=== PATIENT | male | born 1930 | race Caucasian/White ===

== ENCOUNTER 2016-08-16 22:04 | Inpatient (IN) | payer MEDICARE, SELFPAY ==
--- NOTE | ~2016-08-16 | CN ---
Consultation Report [facility] [address] [place]. [address] NAME: MISTY MEAD : 34 STATUS : ADM IN [facility]#: [id number] AGE: 86 ADM/REG DATE : 08/16/16 MR#: [id number] REPORT SERV DATE: 08/20/16 DICTATED BY: ELIZABETH GOMEZ III DATE: 08/19/16 REPORT STATUS : Draft TRANSCRIBED BY: MODL DATE: 08/19/16 CONSULTATION DATE OF CONSULTATION: 08/19/2016 REASON FOR CONSULTATION: CLL. HISTORY OF PRESENT ILLNESS: Mr. Mead is an 86-year-old man who presented to the hospital on the with severe pain in his right iliac spine. He noted a knot that appeared there on this Monday prior to admission with severe pain. This did resolve spontaneously. He does note that in the past several months he has lost considerable amount of weight. He has not noted any recent night sweats. He has not noted any other pain presently. He has been more fatigued and has not been eating very well. PAST MEDICAL HISTORY: Negative as he has not been to a physician in many years. FAMILY HISTORY: Noncontributory. SOCIAL HISTORY: Negative for any tobacco or alcohol or drug abuse. MEDICATIONS: His home medication list is negative. REVIEW OF SYSTEMS: A comprehensive review of systems was performed and is negative unless noted in the HPI. PHYSICAL EXAMINATION: VITAL SIGNS: Blood pressure is 150/71, temperature is 98.2, pulse is 60, respiratory rate 16. GENERAL: This is a well-developed cachectic man in no acute distress. EYES: Pupils are round and reactive to light. Extraocular muscles are intact. NECK: Supple with no masses or thyroid enlargement. No JVD. CARDIOVASCULAR: Regular rate and rhythm with no audible murmurs. There is no peripheral edema. LUNGS: Clear to auscultation bilaterally. ABDOMEN: Soft, nondistended, nontender. There is no noted hepatosplenomegaly. No ascites. SKIN: Warm and dry with good skin turgor. No jaundice. LYMPHATIC: Negative for any cervical, supraclavicular, or axillary lymphadenopathy. PSYCHIATRIC: He is alert, oriented, and comprehends our conversation with normal judgment and affect. MUSCULOSKELETAL: Negative for any synovitis or other joint abnormalities. LABORATORY DATA: His most recent CBC showed a white blood cell count of 20.5, hemoglobin of 10.6, and platelet count of 83. His CT scan was personally reviewed and did show splenomegaly. There was also abdominal mildly enlarged diffuse lymphadenopathy. Consultation Report [place] [address] [place] [address] NAME: MISTY MEAD : 32 STATUS : ADM IN PAT#: [id number] AGE: 86 ADM/REG DATE : 08/16/16 MR#: [id number] REPORT SERV DATE: 08/20/16 DICTATED BY: ELIZABETH GOMEZ III DATE: 08/19/16 REPORT STATUS : Draft TRANSCRIBED BY: MODL DATE: 08/19/16 ASSESSMENT AND PLAN: Chronic lymphocytic leukemia. His elevated white blood cell count is secondary to his disease. His anemia and thrombocytopenia also are likely secondary to his disease. He will require treatment. It is okay for him to be discharged home. He is a candidate for our clinical trial which he is avoiding chemotherapy in the front-line setting and using a CD20 monoclonal antibody with routes out a PI3-kinase delta inhibitor. We will follow while he is an inpatient and arrange outpatient followup upon discharge. BMA/JERMAIN Elizabeth Gomez III, M.D. / [id number] CC: Ana Kramer M.D.
--- NOTE | ~2016-08-16 | HP ---
History And Physical [address] [place]. [address] NAME: MISTY MEAD : 32 STATUS : ADM [facility] PAT#: [id number] AGE: 86 ADM/REG DATE : 08/16/16 MR#: [id number] REPORT SERV DATE: 08/17/16 DICTATED BY: TRAV HANNA DATE: 08/17/16 REPORT STATUS : Draft TRANSCRIBED BY: MODL DATE: 08/17/16 DATE OF ADMISSION: 08/16/2016 CHIEF COMPLAINT: Abdominal pain. DICTATION ENDS HERE /JERMAIN Trav Hanna M.D. / [id number] CC: Gerson Osborne M.D.
--- NOTE | ~2016-08-16 | DS ---
Discharge Summary [facility] [address] [place]. [address] NAME: MISTY MEAD : 32 STATUS : ADM IN [facility]#: [id number] AGE: 86 ADM/REG DATE : 08/16/16 MR#: [id number] REPORT SERV DATE: 08/20/16 DICTATED BY: GARRETT ROWLAND DATE: 08/20/16 REPORT STATUS : Draft TRANSCRIBED BY: MODL DATE: 08/20/16 ADMISSION DATE: 08/16/2016 DISCHARGE DATE: 08/20/2016 DIAGNOSES ON ADMISSION: Abdominal pain, leukocytosis, and possible pyelonephritis. DIAGNOSES ON DISCHARGE: 1. Blood disorder suggestive of chronic lymphocytic leukemia, status post bone marrow biopsy. 2. Leukocytosis and thrombocytopenia secondary to chronic lymphocytic leukemia. 3. No evidence of pyelonephritis, mild hematuria present on admission secondary to Olmstead placement in the emergency room, resolved after Ol[place]stead catheter was discontinued. 4. Prerenal azotemia present on admission, stable with IV fluid hydration. It looks like mild chronic kidney disease with a baseline creatinine of 1.2. The patient needs to drink fluids. 5. Enlarged prostate on the CT scan, probable benign prostatic hypertrophy with a normal PSA level. Recommend outpatient Urology followup. CONSULTANTS ON THE CASE: Retread Operator/oncologist, Dr. Torres. IMAGING STUDIES: CT of the abdomen and pelvis on 08/16/2016, no acute abdominal or pelvic pathology; cholelithiasis, no acute cholecystitis; nonspecific splenomegaly; prostate enlargement; probable BPH. Correlation with a PSA level recommended. Chest x-ray on 08/16/2016; granuloma, otherwise clear lungs. Heart is normal size. HISTORY OF PRESENT ILLNESS: Briefly, this is an 86-year-old man who was admitted by my colleague, Dr. Berman because of pain and weakness. He had significant leukocytosis of 26,000 on admission as well as he had low platelet count, it was 87,000 on admission. For details, see history of present illness dictated by Dr. Berman. HOSPITAL COURSE: Briefly, the patient was admitted to the hospital. He was seen by nurse practitioner, Jolie Ayon, since admission until 08/19/2016. I started to see this patient on 08/19/2016. The patient had peripheral smear done, which showed platelets in markedly decreased numbers, and he had also increased level of lymphocytes. 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 The patient had a bone marrow biopsy. The final results are currently pending. The patient was given IV fluid hydration during hospitalization. His blood cultures were negative. The patient did not have any fever and did not have any abdominal pain. He tolerated his diet. His urinalysis showed blood in the urine with more than 182 red cells and only 2 white cells. The patient's creatinine stayed in the range of 1.2 to 1.15. It looks like this is baseline for him. The patient and his family were told that he should avoid any nonsteroidal antiinflammatories and not use any Aleve, naproxen, or ibuprofen and also to drink plenty of fluids. The patient was seen by motor vehicle licence examiner/oncologist, Dr. Torres, who recommended the patient to be discharged as well as he recommended the patient to follow up with him for chronic lymphocytic leukemia treatment. Dr. Torres in his consult note mentioned that he may be a candidate for clinical trials with new antibody treatment. Discharge Summary [address] [address] NAME: MISTY MEAD : 32 STATUS : ADM IN PAT#: [id number] AGE: 86 ADM/REG DATE : 08/16/16 MR#: [id number] REPORT SERV DATE: 08/20/16 DICTATED BY: GARRETT ROWLAND DATE: 08/20/16 REPORT STATUS : Draft TRANSCRIBED BY: JERMAIN DATE: 08/20/16 The patient is using only Tylenol at home as needed for pain. I told the patient and his family to avoid any nonsteroidal antiinflammatories and I told them also that he can use Tylenol but not to exceed the appropriate dose of 1000 to 1500 mg a day. The patient does not have a primary care physician. Family was told that it will be good to find a primary care physician for the patient. The patient was discharged in stable condition. Office phone number for Dr. Torres was given to the patient and family to call onto schedule an appointment in the next one to two weeks. DICTATED BY: Atif Wadsworth/JERMAIN Garrett Rowland M.D. / [id number] CC: Atif Wadsworth III, M.D.
--- NOTE | ~2016-08-16 | HP ---
History And Physical [place] [address] [facility] [place]. [address] NAME: MISTY MEAD : 32 STATUS : ADM [facility] PAT#: [id number] AGE: 86 ADM/REG DATE : 08/16/16 MR#: [id number] REPORT SERV DATE: 08/17/16 DICTATED BY: TRAV HANNA DATE: 08/17/16 REPORT STATUS : Draft TRANSCRIBED BY: MODL DATE: 08/17/16 DATE OF ADMISSION: 08/16/2016 CHIEF COMPLAINT: Abdominal pain. HISTORY OF PRESENT ILLNESS: This is an 86-year-old male with no significant past medical history and has not seen a physician in many years, who presents to the emergency room at [facility] with the above-mentioned complaint. History is obtained from the patient, his niece who is at bedside, and reviewing data available on the [employer] system. According to Mr. Mead and his niece, he was in his usual state of health until Monday, which is about two days ago when he started feeling a knot on his left hip. This was associated with excruciating pain and the niece who is with him also saw it. He actually points to an area over his anterior superior iliac spine as where the knot is. Apparently in the last 24 hours or so, he has also complained of feeling chill and freezing. They finally took him to [facility]'s outpatient clinic in [place], [place], where a blood work was done, leukocytosis was seen, and the patient was sent here for further evaluation. In the emergency room here, initial workup revealed an elevated white blood cell count. Unfortunately, they were not able to get a sample for urinalysis, as the patient was so dry. Hospitalist Service is asked to admit him for further evaluation and treatment. At the time of my evaluation, Mr. Mead was arousable; follows commands; and was alert, awake, and oriented. However, he appeared to be very weak. He denied any chest pain or palpitations. He had no orthopnea. He had no cough, hemoptysis, night sweats, or weight loss. He has not had any recent falls or loss of consciousness. No history of recent nausea, vomiting, or diarrhea. No history of hematemesis, hematochezia, or hematuria. No other history of recent travel or exposures. PAST SOCIAL HISTORY: None. SOCIAL HISTORY: He does not smoke, drink, or use recreational drugs at this time. FAMILY HISTORY: Noncontributory. MEDICATIONS: His medications at home were reviewed by me in the chart today and reordered by me. REVIEW OF SYSTEMS: As in history of present illness. All other systems were reviewed in detail and are quite unremarkable. PHYSICAL EXAMINATION: GENERAL: This is a pleasant 86-year-old, who appears to be emaciated and weak. However, he alert, awake, and oriented to time, place, and person. History And Physical [address] [address] NAME: MISTY MEAD : 32 STATUS : ADM [facility] PAT#: [id number] AGE: 86 ADM/REG DATE : 08/16/16 MR#: [id number] REPORT SERV DATE: 08/17/16 DICTATED BY: TRAV HANNA DATE: 08/17/16 REPORT STATUS : Draft TRANSCRIBED BY: JERMAIN DATE: 08/17/16 HEENT: His head is atraumatic, normocephalic. His pupils are equal, reacting to light, and accommodating. External ocular muscles are intact. Membranes are moist and pink. Sclerae are nonicteric. NECK: Supple with no jugular venous distention, lymphadenopathy, or thyromegaly. LUNGS: Clear to auscultation with no wheezes, rubs, or crackles. HEART: Heart sounds were regular with no murmurs, rubs, or gallops. ABDOMEN: Soft, nontender. Bowel sounds are present. EXTREMITIES: Showed no cyanosis, clubbing, or cyanosis. NEUROLOGIC: Grossly intact. No focal sensory or motor deficits. Higher functions appeared intact. VITAL SIGNS: His vital signs today showed a temperature of 98.2, pulse 76, respirations 16 a minute, blood pressure was 142/68, oxygen saturations were 96% breathing 2 L of oxygen via nasal cannula. LABORATORY DATA: Reviewed on the [employer] system showed normal CMP. His lipase was 192, troponin was 0.02. Lactate was 0.6. BNP was 60.8. His white blood cell count was elevated at 26,700, hemoglobin was 12, hematocrit 38.5, and platelet count was down to 87,000. We have no prior values to compare all this. His prothrombin time was 14.8 with an INR 1.2. Urinalysis was unavailable at this time. Films of the CT scan of his abdomen and pelvis were reviewed by me on the PACS today and interpreted by me. There is cholelithiasis without cholecystitis. No other acute findings. A 12-lead EKG done in the emergency room was reviewed and interpreted by me. There is normal sinus rhythm at a rate of 79 per minute. IMPRESSION: 1. Abdominal pain. 2. Leukocytosis. 3. Possible pyelonephritis. PLAN: We will admit Mr. Mead to the Hospitalist Service with defensive monitoring for a 24 hour observation. We will start him on IV fluid boluses for volume replacement and dehydration, obtain urine sample, and then proceed with antibiotics. Even after a bolus of IV antibiotics, the patient had no urine even after he was catheterized. We will continue bolus fluids and obtain a sample before we give antibiotics. He will also be placed on unfractionated heparin for DVT prophylaxis while here. I have discussed the above plans with the patient and his niece. Their questions were answered and they are agreeable to the above recommendations. Hospitalist Service will be following him during his stay here. /JERMAIN Trav Hanna M.D. / [phone] History And Physical [address] [address] NAME: MISTY MEAD : 32 STATUS : ADM [facility] PAT#: [id number] AGE: 86 ADM/REG DATE : 08/16/16 MR#: [id number] REPORT SERV DATE: 08/17/16 DICTATED BY: TRAV HANNA DATE: 08/17/16 REPORT STATUS : Draft TRANSCRIBED BY: JERMANI DATE: 08/17/16 CC: Gerson Osborne M.D.
[2016-08-16 21:17] LABS: ER CBC TAT 0 Hrs 05 Mins; HEMATOCRIT 38.5 % (40.0-51.0); MEAN CORPUS HGB CONC 31.2 g/dL (32.0-36.0); MEAN CORPUSCULAR HEMOGLOB 27.6 pg (26.0-34.0); MEAN CORPUSCULAR VOLUME 88.7 fL (80-100); MEAN PLATELET VOLUME 11.6 fL (9.2-13.0); PLATELET COUNT 87 10/3/uL (150-400); RBC DISTRIBUTION WIDTH 16.9 % (12.0-16.0); RED CELL COUNT 4.34 10/6/uL (4.7-6.1); WHITE BLOOD CELLS 26.7 10/3/uL (4.5-10.5)
[2016-08-16 21:19] LABS: MANUAL DIFF YES %
[2016-08-16 21:23] LABS: INTERNATIONAL NORMAL RATI 1.2 UNITS (-); PARTIAL THROMBO TIME 41.3 SEC (22.5-37.2); PROTIME (NOT ORD) 14.8 SEC (12.0-14.5)
[2016-08-16 21:32] LABS: BUN (BLOOD UREA NITROGEN) 17 MG/DL (6-23); CALCIUM, SERUM 9.3 MG/DL (8.5-10.4); CHEST PAIN PROFILE TAT 0 Hrs 20 Mins; CHLORIDE, SERUM 102 MMOL/L (96-112); CO2 (CARBON DIOXIDE) 31 MMOL/L (24-34); CREATININE 1.07 MG/DL (0.70-1.30); GFR AFRICAN AMERICAN 73 ML/MIN (>=60); GFR NON AFRICAN AMERICAN 63 ML/MIN (>=60); GLUCOSE, SERUM 84 MG/DL (60-99); POTASSIUM, SERUM 4.3 MMOL/L (3.5-5.3); SODIUM, SERUM 136 MMOL/L (135-148); TROPONIN I <0.02 NG/ML (<0.05)
[2016-08-16 21:35] LABS: BAND NEUTROPHILS 1 %; ER DIFF TAT 0 Hrs 23 Mins; LYMPHOCYTES 72 %; LYMPHOCYTES ABSOLUTE (CALC) 19.22 10/3/uL (0.67-4.30); MONOCYTES 6 %; NEUTROPHILS ABSOLUTE (CALC) 5.87 10/3/uL (2.02-8.40); SEGMENTED NEUTROPHIL (0) 21 %; TOTAL NUCLEATED CELLS 100
[2016-08-16 21:37] LABS: PLATELET ESTIMATE DEC (ADEQUATE); SMUDGE CELLS FEW
[2016-08-16 21:38] LABS: PATH REVIEW YES
[2016-08-16 22:47] LABS: ALBUMIN 3.7 G/DL (3.5-5.0); ALKALINE PHOSPHATASE 69 U/L (45-117); DIRECT BILIRUBIN 0.2 MG/DL (0.0-0.4); INDIRECT BILIRUBIN(NOT ORDER) 0.3 MG/DL (0.1-0.9); SGOT(AST) 22 U/L (5-40); SGPT(ALT) 20 U/L (5-65); TOTAL BILIRUBIN 0.5 MG/DL (0-1.2); TOTAL PROTEIN 7.9 G/DL (6.0-8.5)
[2016-08-16] MEDS ORDERED: ACET500CAP PO (22:55)
[2016-08-17 02:00] LABS: ASCORBIC ACID (UR NOT ORDER) NEG (NEG); BILIRUBIN, URINE NEGATIVE (NEG); ER URINALYSIS TAT 0 Hrs 00 Mins; KETONE, URINE NEGATIVE (NEG); LEUKOCYTE ESTERASE(NOT OR TRACE (NEG); NITRITE (URINE) NEG (NEG); WBC (NOT ORDERED) (RFLEX) 2 (0-5)
[2016-08-17 02:19] LABS: PROCALCITONIN <0.05 ng/mL (<0.5)
[2016-08-17 06:47] LABS: HEMOGLOBIN 10.4 g/dL (13.6-17.8); MEAN CORPUS HGB CONC 31.5 g/dL (32.0-36.0); MEAN CORPUSCULAR HEMOGLOB 27.9 pg (26.0-34.0); MEAN CORPUSCULAR VOLUME 88.5 fL (80-100); MEAN PLATELET VOLUME 10.7 fL (9.2-13.0); NUCLEATED RED BLOOD CELLS 1.2 /100WBC (0-0); PLATELET COUNT 81 10/3/uL (150-400); RBC DISTRIBUTION WIDTH 17.1 % (12.0-16.0); RED CELL COUNT 3.73 10/6/uL (4.7-6.1); WHITE BLOOD CELLS 20.9 10/3/uL (4.5-10.5)
[2016-08-17 06:48] LABS: BUN (BLOOD UREA NITROGEN) 16 MG/DL (6-23); CHLORIDE, SERUM 108 MMOL/L (96-112); CO2 (CARBON DIOXIDE) 27 MMOL/L (24-34); CREATININE 0.96 MG/DL (0.70-1.30); GFR AFRICAN AMERICAN 84 ML/MIN (>=60); GFR NON AFRICAN AMERICAN 72 ML/MIN (>=60); GLUCOSE, SERUM 80 MG/DL (60-99); MANUAL DIFF YES %; PHOSPHORUS, SERUM 3.3 MG/DL (2.5-4.5); POTASSIUM, SERUM 4.8 MMOL/L (3.5-5.3); SODIUM, SERUM 140 MMOL/L (135-148)
[2016-08-17 06:49] LABS: CALCIUM, SERUM 8.3 MG/DL (8.5-10.4)
[2016-08-17 07:48] LABS: ANISOCYTOSIS 1+ (5-10/OIF) (0-5/OIF); ATYPICAL LYMPH FEW (3-5%) (0-5%); LYMPHOCYTES 59 %; LYMPHOCYTES ABSOLUTE (CALC) 12.33 10/3/uL (0.67-4.30); MONOCYTES 12 %; MONOCYTES ABSOLUTE (CALC) 2.51 10/3/uL (0.21-1.20); NEUTROPHILS ABSOLUTE (CALC) 6.06 10/3/uL (2.02-8.40); PLATELET ESTIMATE DEC (ADEQUATE); SEGMENTED NEUTROPHIL (0) 29 %; SMUDGE CELLS FEW; TOTAL NUCLEATED CELLS 100
[2016-08-17 07:52] LABS: PATH REVIEW SEE PATHOLOGY REPORT
[2016-08-17 17:41] LABS: PROSTATIC SPECIFIC AG 2.21 NG/ML (0.0-6.5)
[2016-08-18 06:41] LABS: BUN (BLOOD UREA NITROGEN) 16 MG/DL (6-23); CALCIUM, SERUM 8.7 MG/DL (8.5-10.4); CHLORIDE, SERUM 110 MMOL/L (96-112); CO2 (CARBON DIOXIDE) 25 MMOL/L (24-34); CREATININE 1.15 MG/DL (0.70-1.30); GFR AFRICAN AMERICAN 67 ML/MIN (>=60); GFR NON AFRICAN AMERICAN 58 ML/MIN (>=60); GLUCOSE, SERUM 81 MG/DL (60-99); POTASSIUM, SERUM 4.4 MMOL/L (3.5-5.3); SODIUM, SERUM 142 MMOL/L (135-148)
[2016-08-18 07:52] LABS: HEMATOCRIT 31.5 % (40.0-51.0); HEMOGLOBIN 9.8 g/dL (13.6-17.8); MEAN CORPUS HGB CONC 31.1 g/dL (32.0-36.0); MEAN CORPUSCULAR HEMOGLOB 27.5 pg (26.0-34.0); MEAN CORPUSCULAR VOLUME 88.5 fL (80-100); MEAN PLATELET VOLUME 11.6 fL (9.2-13.0); PLATELET COUNT 77 10/3/uL (150-400); RBC DISTRIBUTION WIDTH 17.1 % (12.0-16.0); RED CELL COUNT 3.56 10/6/uL (4.7-6.1); RETICULOCYTE COUNT 2.5 % (0.5-2.5); RETICULOCYTE COUNT ABSOLUTE 88.3 10/3/uL (20.2-119.8); WHITE BLOOD CELLS 18.6 10/3/uL (4.5-10.5)
[2016-08-18 07:55] LABS: MANUAL DIFF YES %
[2016-08-18 08:07] LABS: ANISOCYTOSIS 1+ (5-10/OIF) (0-5/OIF); ATYPICAL LYMPH OCC (0-2%) (0-5%); EOSINOPHILS 1 %; EOSINOPHILS ABSOLUTE (CALC) 0.19 10/3/uL (0.0-0.53); LYMPHOCYTES 69 %; LYMPHOCYTES ABSOLUTE (CALC) 12.83 10/3/uL (0.67-4.30); MONOCYTES 8 %; MONOCYTES ABSOLUTE (CALC) 1.49 10/3/uL (0.21-1.20); NEUTROPHILS ABSOLUTE (CALC) 4.09 10/3/uL (2.02-8.40); PLATELET ESTIMATE DEC (ADEQUATE); SEGMENTED NEUTROPHIL (0) 22 %; TOTAL NUCLEATED CELLS 100
[2016-08-18 08:09] LABS: SMUDGE CELLS OCC
[2016-08-19 05:33] LABS: HEMATOCRIT 33.6 % (40.0-51.0); HEMOGLOBIN 10.6 g/dL (13.6-17.8); MANUAL DIFF YES %; MEAN CORPUS HGB CONC 31.5 g/dL (32.0-36.0); MEAN CORPUSCULAR HEMOGLOB 27.7 pg (26.0-34.0); MEAN CORPUSCULAR VOLUME 87.7 fL (80-100); MEAN PLATELET VOLUME 11.6 fL (9.2-13.0); PLATELET COUNT 83 10/3/uL (150-400); RBC DISTRIBUTION WIDTH 17.1 % (12.0-16.0); RED CELL COUNT 3.83 10/6/uL (4.7-6.1); WHITE BLOOD CELLS 20.5 10/3/uL (4.5-10.5)
[2016-08-19 05:39] LABS: BUN (BLOOD UREA NITROGEN) 17 MG/DL (6-23); CALCIUM, SERUM 8.5 MG/DL (8.5-10.4); CHLORIDE, SERUM 108 MMOL/L (96-112); CO2 (CARBON DIOXIDE) 28 MMOL/L (24-34); CREATININE 1.25 MG/DL (0.70-1.30); GFR AFRICAN AMERICAN 61 ML/MIN (>=60); GFR NON AFRICAN AMERICAN 53 ML/MIN (>=60); GLUCOSE, SERUM 93 MG/DL (60-99); POTASSIUM, SERUM 4.2 MMOL/L (3.5-5.3); SODIUM, SERUM 141 MMOL/L (135-148)
[2016-08-19 06:33] LABS: ANISOCYTOSIS 1+ (5-10/OIF) (0-5/OIF); BAND NEUTROPHILS 2 %; LYMPHOCYTES 65 %; LYMPHOCYTES ABSOLUTE (CALC) 13.33 10/3/uL (0.67-4.30); MONOCYTES 8 %; MONOCYTES ABSOLUTE (CALC) 1.64 10/3/uL (0.21-1.20); NEUTROPHILS ABSOLUTE (CALC) 5.54 10/3/uL (2.02-8.40); PLATELET ESTIMATE DEC (ADEQUATE); RBC MORPHOLOGY NORM (NORMAL); SEGMENTED NEUTROPHIL (0) 25 %; TOTAL NUCLEATED CELLS 100
[2016-08-19 06:53] LABS: SMUDGE CELLS FEW
[2016-08-20 05:19] LABS: BUN (BLOOD UREA NITROGEN) 16 MG/DL (6-23); CALCIUM, SERUM 8.8 MG/DL (8.5-10.4); CHLORIDE, SERUM 108 MMOL/L (96-112); CO2 (CARBON DIOXIDE) 26 MMOL/L (24-34); GFR AFRICAN AMERICAN 64 ML/MIN (>=60); GFR NON AFRICAN AMERICAN 55 ML/MIN (>=60); GLUCOSE, SERUM 92 MG/DL (60-99); POTASSIUM, SERUM 4.1 MMOL/L (3.5-5.3); SODIUM, SERUM 140 MMOL/L (135-148)
[2016-08-20 05:21] LABS: HEMATOCRIT 33.3 % (40.0-51.0); HEMOGLOBIN 10.7 g/dL (13.6-17.8); MANUAL DIFF YES %; MEAN CORPUS HGB CONC 32.1 g/dL (32.0-36.0); MEAN CORPUSCULAR HEMOGLOB 28.1 pg (26.0-34.0); MEAN CORPUSCULAR VOLUME 87.4 fL (80-100); MEAN PLATELET VOLUME 11.1 fL (9.2-13.0); PLATELET COUNT 77 10/3/uL (150-400); RBC DISTRIBUTION WIDTH 16.9 % (12.0-16.0); RED CELL COUNT 3.81 10/6/uL (4.7-6.1); WHITE BLOOD CELLS 19.8 10/3/uL (4.5-10.5)
[2016-08-20 06:19] LABS: LYMPHOCYTES 59 %; LYMPHOCYTES ABSOLUTE (CALC) 11.68 10/3/uL (0.67-4.30); MONOCYTES 12 %; MONOCYTES ABSOLUTE (CALC) 2.38 10/3/uL (0.21-1.20); NEUTROPHILS ABSOLUTE (CALC) 5.74 10/3/uL (2.02-8.40); SEGMENTED NEUTROPHIL (0) 29 %; TOTAL NUCLEATED CELLS 100
[2016-08-20 06:20] LABS: PLATELET ESTIMATE DEC (ADEQUATE); RBC MORPHOLOGY NORM (NORMAL); SMUDGE CELLS FEW
== END 2016-08-20 10:00 | disposition home or self-care (01) | DRG 841 ==
LOC: ER 22:04 → 1SO 23:00
PROVIDERS: Emergency Medicine; Hospitalist; Internal Medicine Pulmonary Disease; Nurse Practitioner; Nurse Practitioner Acute Care
PROC: 07DR3ZX Extraction of Iliac Bone Marrow, Percutaneous Approach, Diagnostic (ICD-10-PCS; principal; 2016-08-18)
DX: C91.10 Chronic lymphocytic leukemia of B-cell type not having achieved remission (principal); E44.0 Moderate protein-calorie malnutrition; Z68.1 Body mass index [BMI] 19.9 or less, adult; N18.2 Chronic kidney disease, stage 2 (mild); N40.0 Benign prostatic hyperplasia without lower urinary tract symptoms
CPT/HCPCS: 36415; 71020; 73502; 74176; 80048; 80053; 80076; 81001; 83605; 83690; 83735; 83880; 84100; 84145; 84153; 84484; 85025; 85045; 85610; 85652; 85730; 87040; 88305; 88311; 88313; 88341; 88342; 88360; 88367; 93005; 99285; G0463